=== PATIENT | male | born 1945 | race Caucasian/White ===

== ENCOUNTER 2023-08-14 15:54 | Emergency (ER) | payer MEDICARE, OTHER ==
[2023-08-14 16:48] VITALS: RESP 18; TEMP 98.5
--- NOTE | 2023-08-14 16:54 | XRAY ---
Indication: Laceration. Comparison: None 3 view left wrist obtained with overlying bandage material present. There is osteopenia, moderate/advanced 1st metacarpal multangular scaphoid lunate degenerative changes with tiny heterotopic ossifications, and tiny old nonunited ulnar styloid fracture. No other bony, articular, or soft tissue abnormalities. Impression: Nonacute left wrist with chronic features.
--- NOTE | 2023-08-14 16:57 | ERPHSYRPT ---
- History of Present Illness Time Seen by Provider: 08/14/23 15:57 Source: patient Exam Limitations: no limitations Patient Subjective Stated Complaint: pt states that he was mowing and caught his wrist on a wire fence Triage Nursing Assessment: pt ambulated into the er; pt is axo x4; c/o laceration; pt states 2/10 pain to left wrist; laceration measures 9 cm x 1.2 cm; laceration has minimal bleeding; good ROM to left wrist; denies numbness or tingling to left wrist/ hand; strong left radial pulse; no respiratory distress present; skin PDW; hypertensive Physician History: 78 years old left-handed dominant male presented in the ER after accidentally hand got caught in the wired fence while mowing with a laceration on the dorsal aspect of left wrist prior to arrival. There was bleeding initially but stopped with applying pressure. Patient denies any numbness tingling or weakness in the hand/fingers. No difficulty movements at rest. Has minimal pain/discomfort in the radial end of wrist. Unsure about tetanus status. Allergies/Adverse Reactions: poison ladonna extract Allergy (Verified 08/14/23 16:31) Hives Home Medications: Atorvastatin Calcium 20 mg PO DAILY 08/14/23 [History] Bimatoprost 0.01% [Lumigan 0.01% 2.5 ml] 1 drop OP HS 08/14/23 [History] Diltiazem HCl [Cardizem LA] 180 mg PO DAILY 08/14/23 [History] Fluorometholone 1 drop OP DAILY 08/14/23 [History] Hx Tetanus, Diphtheria Vaccination/Date Given: No Hx Influenza Vaccination/Date Given: No Hx Pneumococcal Vaccination/Date Given: No Immunizations Up to Date: No Travel Risk - International Travel Have you traveled outside of the country in past 3 weeks: No - Emerging Infectious Disease Are you exhibiting symptoms associated with any current EIDs: No - Review of Systems Constitutional: No Symptoms Ears, Nose, & Throat: No Symptoms Respiratory: No Symptoms Cardiac: No Symptoms Abdominal/Gastrointestinal: No Symptoms Musculoskeletal: Injury Skin: Skin Lesions Neurological: No Symptoms - Past Medical History Pertinent Past Medical History: Yes Neurological History: No Pertinent History ENT History: Other Cardiac History: High Cholesterol, Hypertension Respiratory History: No Pertinent History Endocrine Medical History: No Pertinent History Musculoskeletal History: No Pertinent History GI Medical History: No Pertinent History History: No Pertinent History Psycho-Social History: No Pertinent History Male Reproductive Disorders: No Pertinent History - Past Surgical History Past Surgical History: Yes Neuro Surgical History: No Pertinent History Cardiac: No Pertinent History Gastrointestinal: No Pertinent History Genitourinary: No Pertinent History Musculoskeletal: No Pertinent History Male Surgical History: No Pertinent History Other Surgical History: cornea transplant - Social History Smoking Status: Never smoker Exposure to second hand smoke: Yes Drug Use: none - Nursing Vital Signs Nursing Vital Signs: Initial Vital Signs Pulse Rate 69 08/14/23 16:31 Blood Pressure 149/86 08/14/23 16:31 O2 Sat by Pulse Oximetry 95 08/14/23 16:31 Pain Scale Pain Intensity 2 - Physical Exam General Appearance: no apparent distress, alert Neck Exam: normal inspection, full range of motion Cardiovascular/Respiratory Exam: normal breath sounds, regular rate/rhythm Wrist Exam: bone tenderness (Distal radius, 8 cm laceration with no obvious tendon injury/laceration. Intact range of motion at the left wrist. Distal neurovascular intact.) Hand Exam: normal inspection, non-tender, no evidence of injury, normal ROM Neuro/Tendon Exam: normal sensation, normal motor functions, normal tendon functions Mental Status Exam: alert, oriented x 3, cooperative Skin Exam: normal color SpO2 Interpretation: normal SpO2: 95 O2 Delivery: Room Air Procedures - Laceration/Wound Repair Left Wrist Time of Procedure: 16:56 Wound Location: Left, wrist Wound Length (cm): 9 Wound's Depth, Shape: into muscle, linear Wound Explored: clean Irrigated: Yes Hibiclens Prep: Yes Anesthesia: 1% Lidocaine Volume Anesthetic (ccs): 16 Wound Debrided: minimal Wound Repaired With: sutures Suture Size/Type: 4-0, nylon Number of Sutures: 12 Layer Closure?: No Sterile Dressing Applied?: Yes Splint Applied?: Yes Type of Splint Applied: Aluminum premade Ordered Tests: Active Orders 24 hr Category Date Time Status WRIST (MIN 3 VIEWS) Stat Exams 08/14/23 16:27 Taken Medication Summary Discontinued Medications Generic Name Dose Route Start Last Admin Trade Name Freq PRN Reason Stop Dose Admin Lidocaine HCl Confirm 08/14/23 17:02 Lidocaine Hcl 1% 20 Ml Mdv 20 Ml Ml Administered 08/14/23 17:03 Dose 10 ml .ROUTE .STK-MED ONE Lidocaine HCl 10 ml 05/16/24 17:04 08/14/23 17:05 Lidocaine Hcl 1% 20 Ml Mdv 20 Ml Ml IJ 08/14/23 17:05 10 ml STAT ONE Administration - Progress Progress: improved Progress Note: 08/14/23 17:34 78 years old is evaluated for left wrist injury prior to arrival. Patient has intact distal neurovascular and intact range of motion. Some tenderness in the radial side of the wrist. Obtained x-rays which are negative for acute fracture dislocation reviewed by me, official report is pending. Patient tetanus is updated. Laceration is repaired. Placed in aluminum splint. Has intact distal neurovascular postrepair. Because of close proximity to the joint I have given him prophylactically Keflex. Recommended taking Tylenol ibuprofen as needed and outpatient orthopedics/primary care follow-up for reevaluation. Discussed signs symptoms of worsening needing return to ER which she seems understanding. Counseled pt/family regarding: diagnosis, need for follow-up, rad results Medical Desision Making - Diagnostic Testing Diagnostic test were ordered, analyzed, and reviewed by me: Yes Radiological Interpretation: Interpreted by me, Reviewed by me - Risk of complications The pt has a mod risk of morbidity or mortality based on: Need for prescription drug management, Need for minor surgical intervention in patient with know risk factors - Departure Departure Disposition: Home Clinical Impression: Laceration of wrist Condition: Stable Critical Care Time: No Referrals: ALESSANDRA WILKERSON [Primary Care Provider] - Follow up with PCP 1 day FRANCE SALAZAR MD [ACTIVE STAFF] - Follow up/PCP as directed (1-2 days for reevaluation, call for appointment.) Instructions: Laceration Repair With Stitches (DC) Additional Instructions: Intermittent ice application, keep it elevated. Keep it clean and dry. Avoid exertional work with left hand/wrist. Follow-up with primary care/orthopedics for reevaluation. Return to ER for increasing pain swelling, difficulty movements at the wrist/fingers, numbness/bluish discoloration of the fingers or if develop swelling fever chills discharge. Suture removal in 2 weeks Prescriptions: Cephalexin Mh 500 mg [Keflex 500 mg] 500 mg PO TID #21 cap
[2023-08-14] MEDS ORDERED: XYLOCAINE 1% HCL 20 ML MDV ONE (17:02)
[2023-08-14] MEDS: XYLOCAINE 1% HCL 20 ML MDV IJ ONE (17:05)
[2023-08-14] MEDS ORDERED: KEFLEX 500 MG ONE (17:36)
[2023-08-14 17:37] VITALS: O2SAT 95
[2023-08-14] MEDS ORDERED: Adacel Vial IM ONE (17:37)
[2023-08-14] MEDS: KEFLEX 500 MG PO ONE (17:38)
[2023-08-14] MEDS: Adacel Vial IM ONE (17:38)
[2023-08-14 18:03] VITALS: BP 131/83; PULSE 62
== END 2023-08-14 18:04 | disposition home or self-care (01) ==
LOC: ED 15:54
DX: S61.512A Laceration without foreign body of left wrist, initial encounter (principal); W26.8XXA Contact with other sharp object(s), not elsewhere classified, initial encounter; Y93.H2 Activity, gardening and landscaping; E78.5 Hyperlipidemia, unspecified; I10 Essential (primary) hypertension; Z79.899 Other long term (current) drug therapy; Z23 Encounter for immunization
CPT/HCPCS: 12004; 73110; 90471; 90715; 96372; 99283; A9270-GY